=== PATIENT | female | born 1975 | race Caucasian/White ===

== ENCOUNTER 2024-01-05 17:11 | Inpatient (IN) | payer MEDICAID ==
[~2024-01-05] VITALS: Ht 182.9 cm; Wt 190.4 kg
[2024-01-05 18:16] LABS: BASOPHILS % (AUTO) 0.1 % (0-1); EOSINOPHILS % (AUTO) 0.2 % (0-6); HEMATOCRIT 29.5 % (35.0-45.0); HEMOGLOBIN 8.9 g/dl (12.0-16.0); LYMPHOCYTES # (AUTO) 0.6 X10'3 (1.1-4.8); MEAN CORPUSCULAR VOLUME 69.8 FL (78-98); MEAN PLATELET VOLUME 7.6 FL (7.4-10.4); MONOCYTES # (AUTO) 0.5 X10'3 (0-0.9); MONOCYTES % (AUTO) 2.5 % (2-12); NEUTROPHILS # (AUTO) 17.4 X10'3 (1.8-7.7); NEUTROPHILS % (AUTO) 94.2 % (42-75); PLATELET COUNT 338 X10'3 (140-440); RED BLOOD COUNT 4.22 X10'6 (4.20-5.60); RED CELL DISTRIBUTION WIDTH 19.3 % (11.5-14.5); WHITE BLOOD COUNT 18.5 X10'3 (4.5-11.0)
[2024-01-05 18:19] LABS: ALBUMIN 2.7 G/DL (3.4-5.0); ANION GAP 7 (8-16); BLOOD UREA NITROGEN 16 MG/DL (7-18); BUN/CREATININE RATIO 9.6 (10.0-20.0); CALCIUM 7.9 MG/DL (8.5-10.1); CHLORIDE 102 MMOL/L (99-107); CREATININE 1.67 MG/DL (0.40-0.90); GLUCOSE 121 MG/DL (70-104); SODIUM 133 MMOL/L (135-145); TOTAL CARBON DIOXIDE 23.8 MMOL/L (24-32); eCRCL 47 ML/MIN; eGFR 32 ML/MIN
[2024-01-05 18:38] LABS: ANISOCYTOSIS 2+; MICROCYTOSIS 2+; PLATELET ESTIMATE NORMAL
[2024-01-05 18:39] LABS: ELLIPTOCYTES FEW; HYPOCHROMASIA 2+; STOMATOCYTES 1+
[2024-01-05] MEDS: CefTRIAXone/D5W-Rocephin 1gm 50 ML IV ONE (19:17)
[2024-01-05] MEDS: acetaminophen 1,000mg/100ml IV 100 ML IV ONE (19:33)
[2024-01-05] MEDS: normal saline 1000ML IV soln IVB ONE (19:36)
[2024-01-05] MEDS: vancomycin/NS 1 GM ADD-VANTAGE 250 ML IV ONE (19:41)
[2024-01-05] MEDS ORDERED: ondansetron/PF 4mg/2ml inj IV PRN (20:50)
[2024-01-05 21:22] VITALS: PULSE 100; RESP 29; O2SAT 96
[2024-01-05] MEDS: normal saline 1000ml 1,000 ML IV SCH (21:29)
[2024-01-05 22:15] VITALS: BP 112/38; PULSE 102; RESP 18; TEMP 101.3; O2SAT 95
[2024-01-05] MEDS ORDERED: APIX5TAB3 PO (23:05)
[2024-01-05] MEDS ORDERED: MEDR5TAB4 PO (23:05)
[2024-01-05] MEDS ORDERED: AMI200T PO (23:05)
[2024-01-05] MEDS: apixaban 5mg tablet PO SCH (23:14)
[2024-01-05] MEDS: acetaminophen 325mg tablet PO PRN (23:15)
[2024-01-06] VITALS (13 sets, daily range): BP systolic 101–116; BP diastolic 44–69; PULSE 92–105; RESP 18–36; TEMP 98.9–101.1; O2SAT 91–98
[2024-01-06] MEDS: HYDROcodone/acetaminophen 5mg/325mg tablet PO PRN (00:57)
[2024-01-06] MEDS: vancomycin/NS 1 GM ADD-VANTAGE 250 ML IV SCH (04:00)
[2024-01-06] MEDS: normal saline 1000ml 1,000 ML IV SCH (04:06)
[2024-01-06 06:45] LABS: BILIRUBIN,URINE NEGATIVE (Neg); CLARITY,URINE SLIGHTLY CLOUDY (Clear); COLOR,URINE YELLOW (Yellow); GLUCOSE, URINE NEGATIVE (Neg); KETONES,URINE NEGATIVE (Neg); LEUKOCYTE ESTERASE ,URINE SMALL (Neg); NITRITES, URINE POSITIVE (Neg); OCCULT BLOOD,URINE NEGATIVE (Neg); PH,URINE 5.5 (4.8-8.0); PROTEIN,URINE TRACE mg/dl (Neg); UROBILINOGEN,URINE 0.2 E.U/dL (0.2-1.0)
[2024-01-06 06:48] LABS: UA COLLECTION TYPE NON-SPECIFIED
[2024-01-06 06:54] LABS: WBC,URINE 50-100 /HPF (0-4)
[2024-01-06 06:55] LABS: BACTERIA,URINE 3+ /HPF (Neg); MUCUS STRANDS FEW /LPF (Neg); RBC,URINE NONE SEEN /HPF (0-2); SQUAMOUS EPITHELIAL CELL,UR MANY /LPF (FEW)
[2024-01-06 07:45] LABS: BASOPHILS # (AUTO) 0.1 X10'3 (0-0.2); BASOPHILS % (AUTO) 0.3 % (0-1); EOSINOPHILS % (AUTO) 0 % (0-6); HEMOGLOBIN 8.2 g/dl (12.0-16.0); LYMPHOCYTES # (AUTO) 0.5 X10'3 (1.1-4.8); LYMPHOCYTES % (AUTO) 1.7 % (21-51); MEAN PLATELET VOLUME 7.6 FL (7.4-10.4); MONOCYTES # (AUTO) 0.8 X10'3 (0-0.9); MONOCYTES % (AUTO) 3.1 % (2-12); NEUTROPHILS # (AUTO) 25.3 X10'3 (1.8-7.7); NEUTROPHILS % (AUTO) 94.9 % (42-75); PLATELET COUNT 303 X10'3 (140-440); RED BLOOD COUNT 3.93 X10'6 (4.20-5.60); RED CELL DISTRIBUTION WIDTH 19.9 % (11.5-14.5)
[2024-01-06] MEDS: amiodarone 200mg tablet PO SCH (07:46)
[2024-01-06] MEDS: medroxyprogesterone acet. 2.5mg tablet PO SCH (07:48)
[2024-01-06 07:59] LABS: ALANINE AMINOTRANSFERASE 12 U/L (12-78); ALBUMIN 2.3 G/DL (3.4-5.0); ALBUMIN/GLOBULIN RATIO 0.4 (1.1-1.5); ALKALINE PHOSPHATASE 39 IU/L (46-116); ANION GAP 8 (8-16); ASPARTATE AMINO TRANSFERASE 23 U/L (10-37); BILIRUBIN,DIRECT 0.2 MG/DL (0-0.3); BILIRUBIN,TOTAL 0.6 MG/DL (0.1-1.0); BLOOD UREA NITROGEN 22 MG/DL (7-18); BUN/CREATININE RATIO 8.9 (10.0-20.0); CALCIUM 7.4 MG/DL (8.5-10.1); CHLORIDE 103 MMOL/L (99-107); CREATININE 2.46 MG/DL (0.40-0.90); FREE T4 (FREE THYROXINE) 1.26 NG/DL (0.73-1.40); GLUCOSE 141 MG/DL (70-104); POTASSIUM 5.1 MMOL/L (3.5-5.1); SODIUM 131 MMOL/L (135-145); THYROID STIMULATING HORMONE 1.86 ulU/ml (0.34-4.50); TOTAL CARBON DIOXIDE 20.2 MMOL/L (24-32); TOTAL PROTEIN 7.6 G/DL (6.4-8.2); eCRCL 32 ML/MIN; eGFR 21 ML/MIN
[2024-01-06] MEDS: K and/or MAG REPLACEMENT MC SCH (08:00)
[2024-01-06] MEDS ORDERED: heparin, porcine 5000 units/ml vial SQ SCH (08:00)
[2024-01-06 08:10] LABS: HEMATOCRIT 26.4 % (35.0-45.0); WHITE BLOOD COUNT 26.7 X10'3 (4.5-11.0)
[2024-01-06 08:11] LABS: MEAN CORPUSCULAR HEMOGLOBIN 21.1 PG (27.0-31.0); MEAN CORPUSCULAR HGB CONC 30.6 g/dL (33.0-36.5)
[2024-01-06] MEDS ORDERED: diphenhydrAMINE 25mg capsule PO PRN (09:35)
[2024-01-06] MEDS: acetaminophen 325mg tablet PO ONE (09:39)
[2024-01-06 10:58] LABS: ANISOCYTOSIS 2+; MICROCYTOSIS 1+; PLATELET ESTIMATE NORMAL; TOTAL CELLS COUNTED 100
[2024-01-06 10:59] LABS: POIKILOCYTOSIS FEW
[2024-01-06] MEDS: cefepime 2g/NS 100ml ADVANTAGE 100 ML IV SCH (11:47)
[2024-01-06] MEDS: lactose-reduced food (Ensure High Protein) 237ml bottle PO SCH (13:04)
[2024-01-06] MEDS ORDERED: morphine 2 MG/ML inj. syringe IV PRN ×2 (14:30)
[2024-01-06] MEDS: ipratropium/albuterol 3ml nebule NEB SCH (16:00)
[2024-01-06 16:18] LABS: RED BLOOD COUNT 3.96 X10'6 (4.20-5.60); RETICULOCYTE % (AUTO) 1.5 % (0.5-1.5)
[2024-01-06 16:45] LABS: % IRON SATURATION 4 % (11-46); IRON 10 UG/DL (49-151); TOTAL IRON BINDING CAPACITY 226 UG/DL (259-388)
[2024-01-06 17:00] LABS: FERRITIN 52 NG/ML (8-252)
[2024-01-06] MEDS: methylPREDNISolone sod succ 125mg/2ml vial IV SCH (18:42)
[2024-01-06] MEDS: VANCOMYCIN LEVEL IV ONE (19:30)
[2024-01-06] MEDS ORDERED: CefTRIAXone/D5W-Rocephin 1gm 50 ML IV SCH (20:00)
[2024-01-06] MEDS: nystatin 15 GM powder TP SCH (20:23)
[2024-01-07] VITALS (13 sets, daily range): BP systolic 96–119; BP diastolic 46–63; PULSE 78–89; RESP 16–22; TEMP 96.8–98.9; O2SAT 91–97
[2024-01-07 06:45] LABS: ALBUMIN 2.2 G/DL (3.4-5.0); ANION GAP 12 (8-16); BLOOD UREA NITROGEN 30 MG/DL (7-18); BUN/CREATININE RATIO 12.8 (10.0-20.0); CALCIUM 7.7 MG/DL (8.5-10.1); CHLORIDE 103 MMOL/L (99-107); CREATININE 2.35 MG/DL (0.40-0.90); GLUCOSE 189 MG/DL (70-104); POTASSIUM 5.1 MMOL/L (3.5-5.1); SODIUM 131 MMOL/L (135-145); TOTAL CARBON DIOXIDE 16.5 MMOL/L (24-32); eCRCL 33 ML/MIN; eGFR 22 ML/MIN
[2024-01-07] MEDS ORDERED: iron dextran complex inj. 25 MG in normal saline 50ml IV soln 49.5 ML IV ONE (07:55)
[2024-01-07 08:17] LABS: BASOPHILS % (AUTO) 0 % (0-1); EOSINOPHILS % (AUTO) 0 % (0-6); HEMATOCRIT 27.8 % (35.0-45.0); HEMOGLOBIN 8.1 g/dl (12.0-16.0); LYMPHOCYTES # (AUTO) 0.4 X10'3 (1.1-4.8); LYMPHOCYTES % (AUTO) 1.9 % (21-51); MEAN CORPUSCULAR HEMOGLOBIN 20.8 PG (27.0-31.0); MEAN CORPUSCULAR VOLUME 71.6 FL (78-98); MEAN PLATELET VOLUME 7.6 FL (7.4-10.4); MONOCYTES # (AUTO) 0.3 X10'3 (0-0.9); MONOCYTES % (AUTO) 1.8 % (2-12); NEUTROPHILS # (AUTO) 18.6 X10'3 (1.8-7.7); NEUTROPHILS % (AUTO) 96.3 % (42-75); PLATELET COUNT 287 X10'3 (140-440); RED BLOOD COUNT 3.88 X10'6 (4.20-5.60); RED CELL DISTRIBUTION WIDTH 20.1 % (11.5-14.5); WHITE BLOOD COUNT 19.3 X10'3 (4.5-11.0)
[2024-01-07] MEDS: iron dextran complex inj. 25 MG in normal saline 100ml IV soln 99.5 ML IV ONE (08:50)
[2024-01-07 10:35] LABS: ANISOCYTOSIS 3+; PLATELET ESTIMATE NORMAL
[2024-01-07 10:36] LABS: BURR CELLS FEW; ELLIPTOCYTES FEW; HYPOCHROMASIA 1+; MICROCYTOSIS 1+; ROULEAUX 1+
[2024-01-07] MEDS ORDERED: VANCOMYCIN 750MG IV in NS 250 ML IV SCH (12:00)
[2024-01-07] MEDS: iron dextran complex inj. 100 MG in normal saline 100ml IV soln 98 ML IV SCH (12:19)
[2024-01-07] MEDS: cefazolin 2gm/D5W 100mL 100 ML IV SCH (12:21)
[2024-01-07] MEDS: linezolid 600mg/300ml PREMIX 300 ML IV SCH (12:21)
[2024-01-08] VITALS (11 sets, daily range): BP systolic 121–140; BP diastolic 62–74; PULSE 76–83; RESP 16–20; TEMP 97.4–98.6; O2SAT 94–97
[2024-01-08 05:41] LABS: BASOPHILS # (AUTO) 0.1 X10'3 (0-0.2); BASOPHILS % (AUTO) 0.3 % (0-1); EOSINOPHILS % (AUTO) 0 % (0-6); HEMOGLOBIN 8.1 g/dl (12.0-16.0); LYMPHOCYTES # (AUTO) 0.8 X10'3 (1.1-4.8); MEAN PLATELET VOLUME 7.6 FL (7.4-10.4); MONOCYTES # (AUTO) 0.7 X10'3 (0-0.9); MONOCYTES % (AUTO) 3.7 % (2-12); NEUTROPHILS # (AUTO) 17.3 X10'3 (1.8-7.7); PLATELET COUNT 264 X10'3 (140-440); RED BLOOD COUNT 3.91 X10'6 (4.20-5.60); RED CELL DISTRIBUTION WIDTH 20.4 % (11.5-14.5); WHITE BLOOD COUNT 18.8 X10'3 (4.5-11.0)
[2024-01-08 06:00] LABS: ALBUMIN 2.2 G/DL (3.4-5.0); ANION GAP 8 (8-16); BLOOD UREA NITROGEN 36 MG/DL (7-18); BUN/CREATININE RATIO 21.4 (10.0-20.0); CALCIUM 8.4 MG/DL (8.5-10.1); CHLORIDE 105 MMOL/L (99-107); CREATININE 1.68 MG/DL (0.40-0.90); GLUCOSE 152 MG/DL (70-104); POTASSIUM 5.4 MMOL/L (3.5-5.1); SODIUM 133 MMOL/L (135-145); TOTAL CARBON DIOXIDE 20.5 MMOL/L (24-32); eCRCL 46 ML/MIN; eGFR 32 ML/MIN
[2024-01-08 06:17] LABS: HEMATOCRIT 25.7 % (35.0-45.0); MEAN CORPUSCULAR VOLUME 67.5 FL (78-98)
[2024-01-08 06:18] LABS: MEAN CORPUSCULAR HEMOGLOBIN 21.5 PG (27.0-31.0); MEAN CORPUSCULAR HGB CONC 31.8 g/dL (33.0-36.5)
[2024-01-08] MEDS ORDERED: VANCOMYCIN LEVEL IV ONE (11:30)
[2024-01-09] VITALS (11 sets, daily range): BP systolic 131–156; BP diastolic 59–72; PULSE 68–88; RESP 15–22; TEMP 97.7–97.9; O2SAT 93–96
[2024-01-09 07:53] LABS: BASOPHILS % (AUTO) 0 % (0-1); EOSINOPHILS % (AUTO) 0.1 % (0-6); HEMATOCRIT 26.9 % (35.0-45.0); LYMPHOCYTES # (AUTO) 1.4 X10'3 (1.1-4.8); LYMPHOCYTES % (AUTO) 8.1 % (21-51); MEAN CORPUSCULAR HGB CONC 29.8 g/dL (33.0-36.5); MEAN CORPUSCULAR VOLUME 70.6 FL (78-98); MEAN PLATELET VOLUME 7.9 FL (7.4-10.4); MONOCYTES % (AUTO) 5.8 % (2-12); NEUTROPHILS # (AUTO) 14.5 X10'3 (1.8-7.7); PLATELET COUNT 278 X10'3 (140-440); RED BLOOD COUNT 3.81 X10'6 (4.20-5.60); RED CELL DISTRIBUTION WIDTH 20.2 % (11.5-14.5); WHITE BLOOD COUNT 16.9 X10'3 (4.5-11.0)
[2024-01-09 08:06] LABS: ALBUMIN 2.3 G/DL (3.4-5.0); ANION GAP 4 (8-16); BLOOD UREA NITROGEN 35 MG/DL (7-18); BUN/CREATININE RATIO 21.2 (10.0-20.0); CALCIUM 8.2 MG/DL (8.5-10.1); CHLORIDE 107 MMOL/L (99-107); CREATININE 1.65 MG/DL (0.40-0.90); GLUCOSE 119 MG/DL (70-104); POTASSIUM 5.3 MMOL/L (3.5-5.1); SODIUM 135 MMOL/L (135-145); TOTAL CARBON DIOXIDE 23.9 MMOL/L (24-32); eCRCL 47 ML/MIN; eGFR 33 ML/MIN
[2024-01-09 11:31] LABS: PLATELET ESTIMATE NORMAL
[2024-01-09 11:32] LABS: ANISOCYTOSIS 3+; BURR CELLS FEW; ELLIPTOCYTES FEW; HYPOCHROMASIA 1+; MICROCYTOSIS 1+; TARGET CELLS FEW
[2024-01-09] MEDS: PATIROMER CALCIUM SORBITEX 8.4 GM POWD.PACK PO SCH (13:02)
[2024-01-10] VITALS (15 sets, daily range): BP systolic 120–158; BP diastolic 58–76; PULSE 70–86; RESP 18–20; TEMP 97.8–98.5; O2SAT 89–96
[2024-01-10 06:22] LABS: BASOPHILS # (AUTO) 0.1 X10'3 (0-0.2); BASOPHILS % (AUTO) 0.5 % (0-1); EOSINOPHILS # (AUTO) 0.1 X10'3 (0-0.9); HEMATOCRIT 25.6 % (35.0-45.0); HEMOGLOBIN 7.8 g/dl (12.0-16.0); LYMPHOCYTES # (AUTO) 2.3 X10'3 (1.1-4.8); LYMPHOCYTES % (AUTO) 16.9 % (21-51); MEAN CORPUSCULAR HEMOGLOBIN 21.4 PG (27.0-31.0); MEAN CORPUSCULAR HGB CONC 30.6 g/dL (33.0-36.5); MEAN CORPUSCULAR VOLUME 69.9 FL (78-98); MEAN PLATELET VOLUME 7.9 FL (7.4-10.4); MONOCYTES # (AUTO) 1.5 X10'3 (0-0.9); MONOCYTES % (AUTO) 10.9 % (2-12); NEUTROPHILS # (AUTO) 9.6 X10'3 (1.8-7.7); NEUTROPHILS % (AUTO) 70.7 % (42-75); PLATELET COUNT 275 X10'3 (140-440); RED BLOOD COUNT 3.66 X10'6 (4.20-5.60); RED CELL DISTRIBUTION WIDTH 20.1 % (11.5-14.5); WHITE BLOOD COUNT 13.5 X10'3 (4.5-11.0)
[2024-01-10 06:36] LABS: ALBUMIN 2.2 G/DL (3.4-5.0); ANION GAP 5 (8-16); BLOOD UREA NITROGEN 33 MG/DL (7-18); BUN/CREATININE RATIO 21.7 (10.0-20.0); CALCIUM 7.9 MG/DL (8.5-10.1); CHLORIDE 107 MMOL/L (99-107); CREATININE 1.52 MG/DL (0.40-0.90); GLUCOSE 85 MG/DL (70-104); POTASSIUM 4.8 MMOL/L (3.5-5.1); SODIUM 134 MMOL/L (135-145); TOTAL CARBON DIOXIDE 22.2 MMOL/L (24-32); eCRCL 51 ML/MIN; eGFR 36 ML/MIN
[2024-01-10] MEDS: LORazepam 2 mg/ml vial ONE (23:35)
[2024-01-11] VITALS (12 sets, daily range): BP systolic 149–163; BP diastolic 60–74; PULSE 75–90; RESP 15–20; TEMP 97.9–98.7; O2SAT 90–95
[2024-01-11] MEDS ORDERED: ipratropium/albuterol 3ml nebule NEB PRN (17:15)
[2024-01-12] VITALS (7 sets, daily range): BP systolic 135–163; BP diastolic 60–77; PULSE 74–80; RESP 15–18; TEMP 98.3–98.8; O2SAT 92–96
[2024-01-12 18:58] LABS: BASOPHILS # (AUTO) 0.1 X10'3 (0-0.2); BASOPHILS % (AUTO) 0.5 % (0-1); EOSINOPHILS # (AUTO) 0.6 X10'3 (0-0.9); HEMATOCRIT 27.7 % (35.0-45.0); HEMOGLOBIN 8.4 g/dl (12.0-16.0); LYMPHOCYTES % (AUTO) 13.6 % (21-51); MEAN CORPUSCULAR HEMOGLOBIN 21.2 PG (27.0-31.0); MEAN CORPUSCULAR HGB CONC 30.5 g/dL (33.0-36.5); MEAN CORPUSCULAR VOLUME 69.6 FL (78-98); MEAN PLATELET VOLUME 7.1 FL (7.4-10.4); MONOCYTES # (AUTO) 0.8 X10'3 (0-0.9); MONOCYTES % (AUTO) 5.2 % (2-12); NEUTROPHILS # (AUTO) 11.5 X10'3 (1.8-7.7); NEUTROPHILS % (AUTO) 76.7 % (42-75); PLATELET COUNT 410 X10'3 (140-440); RED BLOOD COUNT 3.99 X10'6 (4.20-5.60); RED CELL DISTRIBUTION WIDTH 20.6 % (11.5-14.5)
[2024-01-12 19:14] LABS: ALANINE AMINOTRANSFERASE 13 U/L (12-78); ALBUMIN 2.4 G/DL (3.4-5.0); ALBUMIN/GLOBULIN RATIO 0.4 (1.1-1.5); ALKALINE PHOSPHATASE 41 IU/L (46-116); ANION GAP 4 (8-16); ASPARTATE AMINO TRANSFERASE 17 U/L (10-37); BILIRUBIN,TOTAL 0.3 MG/DL (0.1-1.0); BLOOD UREA NITROGEN 23 MG/DL (7-18); BUN/CREATININE RATIO 16.3 (10.0-20.0); CALCIUM 8.3 MG/DL (8.5-10.1); CHLORIDE 105 MMOL/L (99-107); CREATININE 1.41 MG/DL (0.40-0.90); GLUCOSE 121 MG/DL (70-104); POTASSIUM 4.8 MMOL/L (3.5-5.1); SODIUM 135 MMOL/L (135-145); TOTAL CARBON DIOXIDE 25.7 MMOL/L (24-32); TOTAL PROTEIN 7.8 G/DL (6.4-8.2); eCRCL 55 ML/MIN; eGFR 39 ML/MIN
[2024-01-13 03:15] LABS: TOTAL CELLS COUNTED 100
[2024-01-13 03:18] LABS: ANISOCYTOSIS 3+; MICROCYTOSIS 2+; PLATELET ESTIMATE NORMAL
[2024-01-13 03:22] LABS: HYPOCHROMASIA 1+; LARGE PLATELETS FEW; POLYCHROMASIA FEW; TARGET CELLS FEW
[2024-01-13 05:47] LABS: BASOPHILS # (AUTO) 0.1 X10'3 (0-0.2); BASOPHILS % (AUTO) 0.7 % (0-1); EOSINOPHILS # (AUTO) 0.6 X10'3 (0-0.9); EOSINOPHILS % (AUTO) 3.5 % (0-6); HEMATOCRIT 28.1 % (35.0-45.0); HEMOGLOBIN 8.5 g/dl (12.0-16.0); LYMPHOCYTES # (AUTO) 2.2 X10'3 (1.1-4.8); MEAN CORPUSCULAR HEMOGLOBIN 20.9 PG (27.0-31.0); MEAN CORPUSCULAR HGB CONC 30.2 g/dL (33.0-36.5); MEAN CORPUSCULAR VOLUME 69.4 FL (78-98); MEAN PLATELET VOLUME 6.9 FL (7.4-10.4); MONOCYTES # (AUTO) 1.1 X10'3 (0-0.9); MONOCYTES % (AUTO) 7.3 % (2-12); NEUTROPHILS # (AUTO) 11.6 X10'3 (1.8-7.7); NEUTROPHILS % (AUTO) 74.5 % (42-75); PLATELET COUNT 418 X10'3 (140-440); RED BLOOD COUNT 4.05 X10'6 (4.20-5.60); RED CELL DISTRIBUTION WIDTH 20.6 % (11.5-14.5); WHITE BLOOD COUNT 15.6 X10'3 (4.5-11.0)
[2024-01-13 06:00] VITALS: BP 138/44; PULSE 73; RESP 18; TEMP 98.2; O2SAT 94
[2024-01-13 06:14] LABS: ALANINE AMINOTRANSFERASE 11 U/L (12-78); ALBUMIN 2.4 G/DL (3.4-5.0); ALBUMIN/GLOBULIN RATIO 0.4 (1.1-1.5); ALKALINE PHOSPHATASE 37 IU/L (46-116); ANION GAP 7 (8-16); ASPARTATE AMINO TRANSFERASE 16 U/L (10-37); BILIRUBIN,TOTAL 0.3 MG/DL (0.1-1.0); BLOOD UREA NITROGEN 20 MG/DL (7-18); BUN/CREATININE RATIO 15.2 (10.0-20.0); CALCIUM 8.3 MG/DL (8.5-10.1); CHLORIDE 105 MMOL/L (99-107); CREATININE 1.32 MG/DL (0.40-0.90); GLUCOSE 98 MG/DL (70-104); POTASSIUM 4.6 MMOL/L (3.5-5.1); SODIUM 136 MMOL/L (135-145); TOTAL CARBON DIOXIDE 24.2 MMOL/L (24-32); TOTAL PROTEIN 7.8 G/DL (6.4-8.2); eCRCL 59 ML/MIN; eGFR 43 ML/MIN
[2024-01-13 09:36] VITALS: PULSE 75; RESP 18; O2SAT 94
[2024-01-13] MEDS ORDERED: DOXY-243 PO (14:44)
== END 2024-01-13 16:31 | disposition home health service (06) | DRG 720 ==
LOC: ER 17:11 → ED HOLD 20:51 → ORTHO 4S 21:55
PROVIDERS: ADMIT Internal Medicine Critical Care Medicine; ATTEND Nurse Practitioner Family
DX: A41.9 Sepsis, unspecified organism (principal); J96.01 Acute respiratory failure with hypoxia; E87.20 Acidosis, unspecified; I48.91 Unspecified atrial fibrillation; G47.33 Obstructive sleep apnea (adult) (pediatric); E66.01 Morbid (severe) obesity due to excess calories; D50.8 Other iron deficiency anemias; L03.116 Cellulitis of left lower limb; Z68.45 Body mass index [BMI] 70 or greater, adult; Z88.1 Allergy status to other antibiotic agents; Z79.01 Long term (current) use of anticoagulants; Z79.899 Other long term (current) drug therapy
CPT/HCPCS: 36415; 71045; 73700; 80048; 80053; 80076; 80202; 81001; 82728; 83540; 83550; 83605; 84145; 84439; 84443; 85007; 85008; 85025; 85045; 87040; 87081; 94640; 94660; 94760; 96365; 96367; 97110; 97116; 97161; 97530; 99285; A6154; A6196; A6212; A6213; A6253; A6446; A6449; C1758; G0378; J0131; J0690; J0692; J1750; J2020; J2060; J2919; J3370; J7030; J7060